=== PATIENT | male | born 1950 | race Caucasian/White ===

== ENCOUNTER → 2017-10-19 | Outpatient (CLI) | payer MEDICARE, OTHER ==
[~2017-10-19] VITALS: Ht 172.8 cm; Wt 72.0 kg
[~2017-10-19] MED LIST: ANTIVERT 12.512.5 MG PO; ASPIR-LOW81 MG PO; ASPIRIN 32325 MG/TAB PO; ASPIRIN E.C. 8181 MG PO; CLARITIN 1010 MG/TAB PO; COLACE 100100 MG/CAP PO; COREG 3.123.125 MG/T PO; CRESTOR40 MG PO; LEXAPRO 10MG10 MG PO; LIPITOR 80MG80 MG PO; LOPRESSOR 225 MG/TAB PO; NICODERM C21 MG/PATC TOP; NITROSTAT0.4 MG/TAB SL; PLAVIX 75MG TAB75 MG PO; PROAIR HFA0.09 MG/AC IH; RT ADVAIR 228 DISKUS IH; TYLENOL 500MG500 MG PO; ZESTRIL 5MG5 MG PO; ZOCOR 20MG20 MG PO
[2017-10-19 07:55] VITALS: BP 126/73; PULSE 75
[2017-10-19 09:41] VITALS: BP 128/56; PULSE 96
[2017-10-19 09:42] VITALS: BP 99/64; PULSE 93
[2017-10-19 09:43] VITALS: BP 116/66; PULSE 91
[2017-10-19 09:44] VITALS: BP 119/62; PULSE 87
== END ==
LOC: COL.CARD 07:35
DX: I24.9 Acute ischemic heart disease, unspecified (principal)
CPT/HCPCS: A9502; J2785

== ENCOUNTER 2020-03-17 10:01 | Day surgery (SDC) | payer MEDICARE, OTHER ==
[~2020-03-17] VITALS: Ht 172.8 cm; Wt 63.5 kg
[2020-03-17] VITALS (11 sets, daily range): BP systolic 81–125; BP diastolic 32–78; PULSE 56–73; TEMP 97.6
[2020-03-17] MEDS ORDERED: VIAGRA50 M1 PO (10:31)
[2020-03-17 11:14] LABS: HEMATOCRIT 45.4 % (42.0-52.0); HEMOGLOBIN 15.1 g/dl (13.5-18.0); MEAN CELL VOLUME 92 fl (80.0-100.0); MEAN CORPUSCULAR HEMOGLOBIN 31 pg (27.0-31.0); MEAN CORPUSCULAR HGB CONC 33 g/dl (33.0-37.0); MEAN PLATELET VOLUME 9.4 fl (7.4-10.4); PLATELET COUNT 264 K/mm3 (130-400); RED BLOOD COUNT 4.95 M/mm3 (4.20-5.60); REDCELL DISTRIBUTION WIDTH-CV 13.8 % (11.5-14.5)
[2020-03-17 11:17] LABS: INR 1.1 (0.8-3.0); PROTHROMBIN TIME 11.8 SECONDS (9.7-12.8)
[2020-03-17 11:19] LABS: CALCIUM 9.4 mg/dL (8.4-10.2); CREATININE, serum 1.23 (0.66-1.25); POTASSIUM 4.4 mmol/L (3.4-5.0)
--- NOTE | 2020-03-17 13:04 | NUR ---
SEE [facility]ERE[facility] FOR ALL MEDICATION ADMIN. TIMES, INTRA AND POST SEDATION ASSESSMENTS
--- NOTE | 2020-03-17 14:00 | NUR ---
Pt back from [facility] cath lab, report from [facility]. pt is gcs 15, pwd. TR band to rt wrist. CMS intact distal. pt aware of poc, call light in reach. LUnch ordered. Sig. other at bs.
--- NOTE | 2020-03-17 17:00 | NUR ---
Pt ready for departure at this time, he is escorted to exit via wheelchair. Pt's TR band was deflated without any problem, no hematoma, no bleeding. site dressed with bandaid, 2x2 and coban. cms remains intact distal. iv dc'd with cath intact, dressing applied. pt is ambulatory in unit with steady gait. I have reviewed dc and fu instructions with patient. he denies any questions or concerns at time of departure.
== END 2020-03-17 18:52 | disposition home or self-care (01) ==
LOC: COL.CAR 10:01
PROVIDERS: Internal Medicine Cardiovascular Disease
DX: I25.10 Atherosclerotic heart disease of native coronary artery without angina pectoris (principal); I25.2 Old myocardial infarction; I10 Essential (primary) hypertension; E78.5 Hyperlipidemia, unspecified; Z20.828 Contact with and (suspected) exposure to other viral communicable diseases; F17.210 Nicotine dependence, cigarettes, uncomplicated; Z79.82 Long term (current) use of aspirin; Z79.899 Other long term (current) drug therapy; J44.9 Chronic obstructive pulmonary disease, unspecified; R42 Dizziness and giddiness; N52.9 Male erectile dysfunction, unspecified; Z79.02 Long term (current) use of antithrombotics/antiplatelets
CPT/HCPCS: J1644; J2250; J3010

== ENCOUNTER 2022-03-28 18:20 | Inpatient (IN) | payer MEDICARE, OTHER ==
[~2022-03-28] VITALS: Ht 170.2 cm; Wt 62.7 kg
[~2022-03-28 18:20] MED LIST changes: +ALBUTEROL0.83 MG/ML IH; +NORCO 325 MG-51 TAB PO; +SPIRIVA RESPIMAT4 GM IH; +THEO-24 30300 MG/CAP PO; +VIAGRA50 M1 PO
[2022-03-28 19:20] VITALS: BP 113/68; PULSE 67; TEMP 97.8
[2022-03-28 20:29] VITALS: BP 116/60; PULSE 64; TEMP 98.1
[2022-03-29] VITALS (18 sets, daily range): BP systolic 71–116; BP diastolic 42–69; PULSE 53–85; TEMP 97.6–98.3
[2022-03-29 06:41] LABS: HEMOGLOBIN 11.6 g/dl (13.5-18.0); MEAN CELL VOLUME 94 fl (80.0-100.0); MEAN CORPUSCULAR HEMOGLOBIN 31 pg (27-31); MEAN CORPUSCULAR HGB CONC 33 g/dl (33.0-37.0); MEAN PLATELET VOLUME 10.2 fl (7.4-10.4); PLATELET COUNT 190 K/mm3 (130-400); RED BLOOD COUNT 3.72 M/mm3 (4.20-5.60); REDCELL DISTRIBUTION WIDTH-CV 13.8 % (11.5-14.5)
[2022-03-29 06:50] LABS: HEMATOCRIT 35.1 % (42.0-52.0)
[2022-03-29 07:06] LABS: ALBUMIN 2.9 gm/dL (3.4-4.8); BILIRUBIN,TOTAL 0.4 mg/dL (0.2-1.2); CALCIUM 7.9 mg/dL (8.4-10.2); CREATININE, serum 1.08 mg/dL (0.72-1.25); POTASSIUM 4.9 mmol/L (3.5-4.5); TOTAL PROTEIN 4.9 gm/dL (6.2-8.1)
--- NOTE | 2022-03-29 07:19 | NUR ---
03/28/22 1900-pt admit admitted to room 347 per EMS, alert and oriented, c/o LLQ pain from hernia repair surgery on 03/27, dressing to site CDI, IV placed prior to arrival, needed replaced prior to hanging IVF, new site in RFA. pt voiding per urinal, oxycodone and morphine given @2150 for pain, BP down to 82/42, x2 NS fluid bolus this shift for low BP, up to 106/69 after 2nd infusion.
--- NOTE | 2022-03-29 09:01 | NUR ---
MIKI met with the patient to discuss discharge plan. The patient lives alone in [place]. He states that he does not have family that live nearby, but has a neighbor for support. He reports independence with ADLs and does not use any assistance devices. He states that he does have COPD and just goes short distances. He has nocturnal oxygen that he believes the [place] provided him with. The patient's PCP is Dr. Nuñez on [address] and he receives his medications from [place] and and [facility] in . The patient does not have a DPOA-HC, but he was interested in obtaining a form. MIKI provided. He states that he is and has one child: Fam (ph#[phone]). Fam lives in [place]. The patient plans to return home upon discharge. He states a friend will transport him home. No additional needs at this time. *Discharge plan: home*
--- NOTE | 2022-03-29 10:55 | NUR ---
Initial visit; Patient thanked [facility] for looking in on him and offering empathy and prayer. Patient thanked [facility] [employer] for offering God's blessings. [facility] [employer] will follow up tomorrow.
[2022-03-30 00:35] VITALS: BP 81/43; PULSE 69; TEMP 98.1
[2022-03-30 00:50] VITALS: BP 109/60; PULSE 60
[2022-03-30 01:00] VITALS: BP 109/57; PULSE 57
[2022-03-30 01:10] VITALS: BP 101/57; PULSE 58
[2022-03-30 01:19] VITALS: BP 102/56; PULSE 58
[2022-03-30 04:17] VITALS: BP 111/59; PULSE 63; TEMP 97.9
--- NOTE | 2022-03-30 11:02 | NUR ---
DISCHARGE INSTRUCTIONS PROVIDED. PATIENT EDUCATION GIVEN. IV DC'D. PATIENT DENIES ANY QUESTIONS OR CONCERNS. MEDS REVIEWED. PATIENT ESCORTED OUT VIA WHEELCHAIR.
== END 2022-03-30 10:55 | disposition home or self-care (01) | DRG 439 ==
LOC: SURG 18:20
PROVIDERS: Physician Assistant; ADMIT Internal Medicine
DX: K85.90 Acute pancreatitis without necrosis or infection, unspecified (principal); J96.11 Chronic respiratory failure with hypoxia; F41.9 Anxiety disorder, unspecified; J44.9 Chronic obstructive pulmonary disease, unspecified; F17.210 Nicotine dependence, cigarettes, uncomplicated; I10 Essential (primary) hypertension; F32.A Depression, unspecified; G89.18 Other acute postprocedural pain; I95.9 Hypotension, unspecified; E87.5 Hyperkalemia; Z53.29 Procedure and treatment not carried out because of patient's decision for other reasons; Z99.81 Dependence on supplemental oxygen
CPT/HCPCS: OP; G0378; J1644; J2270; J3480; J7030; J7040

== ENCOUNTER → 2023-02-07 | Outpatient (CLI) | payer MEDICARE, OTHER | LOC: COL.PUL 13:52 | DX: J44.9 Chronic obstructive pulmonary disease, unspecified (principal) ==